=== PATIENT | female | born 1975 | race Caucasian/White ===

== ENCOUNTER 2024-07-22 14:14 | Outpatient (CLI) | payer BC | END 2024-07-22 14:15 | disposition home or self-care (01) | LOC: CSHMAMMO 14:14 | PROVIDERS: ATTEND Obstetrics & Gynecology | DX: Z12.31 Encounter for screening mammogram for malignant neoplasm of breast (principal); Q83.8 Other congenital malformations of breast | CPT/HCPCS: 77063; 77067 ==